=== PATIENT | male | born 1950 | race Caucasian/White ===

== ENCOUNTER → 2016-12-21 | Outpatient (CLI) | payer OTHER ==
[~2016-12-21] VITALS: Ht 175.3 cm; Wt 117.5 kg
[2016-12-21 12:54] VITALS: BP 133/84; PULSE 58; Ht 175.3 cm; Wt 117.5 kg
== END | disposition home or self-care (01) ==
LOC: C.NEUR 12:37
PROVIDERS: ATTEND Internal Medicine Pulmonary Disease
DX: G47.30 Sleep apnea, unspecified (principal)